=== PATIENT | male | born 1945 | race Caucasian/White ===

== ENCOUNTER → 2018-04-27 | Day surgery (SDC) | payer MEDICARE, BC ==
[~2018-04-27] MED LIST: Lactated Ringers 1,000 ML IV SCH; Propofol 200 MG/20 ML SDV IV ONE
[2018-04-27 09:29] VITALS: BP 130/68
--- NOTE | 2018-04-27 12:54 | OR ---
DATE OF OPERATION: 04/27/2018 PREOPERATIVE DIAGNOSIS: IRON-DEFICIENCY ANEMIA, HISTORY OF COLON CANCER. POSTOPERATIVE DIAGNOSIS: IRON-DEFICIENCY ANEMIA, HISTORY OF COLON CANCER. SURGEON: Dipesh Espinal MD PROCEDURE: 1. FULL-LENGTH COLONOSCOPY. 2. EGD WITH BIOPSIES X2, GIULIA. ANESTHESIA: [employer]ICER. COMPLICATIONS: None. SPECIMEN: 1. Antral biopsy x2. 2. GIULIA. FINDINGS: 1. Full-length EGD. 2. Distal antral gastritis with multiple erosions. 3. Normal full-length colonoscopy. 4. Status post right hemicolectomy without signs of cancer recurrence. RECOMMENDATIONS: The patient will be placed on proton pump therapy and treated appropriately. INDICATIONS: The patient was seen by his oncologist for routine followup on his colon cancer. He was found to be iron deficient. They recommended upper and lower endoscopy. DESCRIPTION OF PROCEDURE: The patient was prepped and draped, placed in the left lateral decubitus position. A lubricated Olympus gastroscope was inserted over a bit and advanced to cricopharyngeus area and easily intubated in the esophagus. Esophageal lining was benign in its entire course. The Z-line was crisp and sharp at 38 cm. No distal esophagitis, stricturing, ulceration, or Fields's changes were seen. The scope was advanced into the stomach through the pylorus and into the second portion of the duodenum. This and the duodenal bulb were benign. The scope was brought back into the stomach at the distal portion of the antrum. In the peripyloric area, the patient had multiple small erosions and evidence of gastritis. Two biopsies were taken along with a CLOtest. On retroflexion, the fundus and cardia were benign. There were no other masses, polyps, lesions, or otherwise. Air was then suctioned from the stomach and the scope removed without complication. A lubricated Olympus colonoscope was then inserted and easily advanced to the right colon at the level of the patient's prior right hemicolectomy. Anastomosis site looked excellent. No signs of any cancer recurrence in the immediate area. Upon withdrawal of the scope, throughout the length of the colon, I could find no polyps, masses, ulcerations, or bleeding sites. No vascular abnormalities or signs of colitis. There were no significant diverticula. The rectal vault was benign. Retroflexion showed no perianal lesions. Air was suctioned, the scope was removed without complication. GAETANO/KAMARI /[id number] CC: Krunal Cox MD
== END ==
LOC: CC.SDS 07:28
PROVIDERS: ATTEND Family Medicine
DX: D50.9 Iron deficiency anemia, unspecified (principal); K29.50 Unspecified chronic gastritis without bleeding; M19.90 Unspecified osteoarthritis, unspecified site; I10 Essential (primary) hypertension; I70.90 Unspecified atherosclerosis; E11.42 Type 2 diabetes mellitus with diabetic polyneuropathy; E78.5 Hyperlipidemia, unspecified; N52.9 Male erectile dysfunction, unspecified; Z79.82 Long term (current) use of aspirin; Z79.84 Long term (current) use of oral hypoglycemic drugs; Z79.899 Other long term (current) drug therapy; Z88.8 Allergy status to other drugs, medicaments and biological substances; Z85.038 Personal history of other malignant neoplasm of large intestine; Z87.891 Personal history of nicotine dependence
CPT/HCPCS: 43239; 45378; 82962; 87081; J2704; J7120; 00813; 88305

== ENCOUNTER 2022-08-01 15:34 | Emergency (ER) | payer MEDICARE, BC ==
[2022-08-01] MEDS ORDERED: Sodium Chloride 0.9% 1,000 ML IV ONE (15:52)
[2022-08-01 16:27] LABS: CHLORIDE,CL 105 mEq/L (98-106); SODIUM,NA 137 mEq/L (136-145)
[2022-08-01 16:28] LABS: ESTIMATED GFR 78 mL/min (>=60)
[2022-08-01] MEDS ORDERED: Iopamidol 755 Mg/ML 100 ML Bottle IVPUSH ONE (16:34)
[2022-08-01] MEDS ORDERED: Pantoprazole 40 MG Vial IVPUSH ONE (18:45)
[2022-08-01] MEDS ORDERED: Pantoprazole 40 MG in Sodium Chloride 0.9% 100 ML IV SCH (20:45)
[2022-08-01] MEDS ORDERED: Sodium Chloride 0.9% 1,000 ML IV SCH (21:00)
[2022-08-01 21:05] VITALS: BP 124/72; PULSE 70
== END 2022-08-01 21:00 ==
LOC: CC.ED 15:34
DX: K92.2 Gastrointestinal hemorrhage, unspecified (principal); I25.10 Atherosclerotic heart disease of native coronary artery without angina pectoris; E11.9 Type 2 diabetes mellitus without complications; Z79.82 Long term (current) use of aspirin; Z79.4 Long term (current) use of insulin; Z79.899 Other long term (current) drug therapy; Z20.822 Contact with and (suspected) exposure to COVID-19
CPT/HCPCS: 36415; 71045; 74177; 80053; 81001; 82272; 83735; 84484; 85025; 93005; 93010; 96361; 96374; 99284; 99285-25; C9113; J1642; J7030; J7050; Q9967; U0002

== ENCOUNTER 2022-12-01 15:49 | Emergency (ER) | payer MEDICARE, BC ==
[2022-12-01 16:27] VITALS: BP 120/81; PULSE 94
== END 2022-12-01 17:11 | disposition home or self-care (01) ==
LOC: CC.ED 15:49
DX: R10.9 Unspecified abdominal pain (principal); I25.10 Atherosclerotic heart disease of native coronary artery without angina pectoris; E11.9 Type 2 diabetes mellitus without complications; Z86.16 Personal history of COVID-19; Z93.1 Gastrostomy status; Z95.5 Presence of coronary angioplasty implant and graft; Z79.4 Long term (current) use of insulin
CPT/HCPCS: 74018; 99283; 99284